=== PATIENT | female | born 1980 | race Caucasian/White ===

== ENCOUNTER 2023-11-25 04:26 | Day surgery (SDC) | payer OTHER ==
[2023-11-24 14:11] VITALS: BMI 33.5
[2023-11-25] MEDS ORDERED: BUPIVACAINE HCL/PF 0.5% (5MG/ML) 10 ML VIAL ONE (07:29)
[2023-11-25] MEDS ORDERED: PROPOFOL 20 ML ONE (07:34)
[2023-11-25] MEDS ORDERED: MIDAZOLAM HCL 2 MG/2 ML SINGLE DOSE VIAL ONE ×2 (07:34→11:13)
[2023-11-25] MEDS ORDERED: ROCURONIUM BROMIDE 50 MG/5 ML SYRINGE ONE ×3 (07:36→12:27)
[2023-11-25] MEDS ORDERED: ONDANSETRON 4 MG/2 ML VIAL IVPUSH PRN ×2 (08:25→14:40)
[2023-11-25] MEDS ORDERED: oxyCODONE HCL 5 MG TABLET PO PRN ×5 (08:25→14:40)
[2023-11-25] MEDS ORDERED: LACTATED RINGERS SOLUTION 1,000 ML IV SCH (08:30)
[2023-11-25] MEDS: ceFAZolin SODIUM 1 GM VIAL IVPB ONE ×2 (11:45)
[2023-11-25] MEDS ORDERED: PROPOFOL 40 ML ONE (12:30)
[2023-11-25] MEDS ORDERED: BISACODYL 5 MG TABLET.DR (FP) PO PRN (14:40)
[2023-11-25] MEDS: LACTATED RINGERS SOLUTION 1,000 ML IV SCH (15:50)
[2023-11-25] MEDS: ACETAMINOPHEN 500 MG TABLET (FP) PO SCH ×2 (16:29→21:54)
[2023-11-25] MEDS: ACETAMINOPHEN 325 MG TABLET (FP) PO SCH (16:30)
[2023-11-25] MEDS: SIMETHICONE 80 MG TAB.CHEW (FP) PO PRN (18:01)
[2023-11-25] MEDS: DOCUSATE SODIUM 100 MG CAPSULE (FP) PO PRN (18:01)
[2023-11-25] MEDS: CEFAZOLIN 1 GM in DEXTROSE 5%-WATER - 50 ML IVPB SCH (18:02)
[2023-11-25] MEDS ORDERED: KETOROLAC TROMETHAMINE 30 MG/1 ML VIAL IVPUSH PRN (20:00)
[2023-11-25 20:42] LABS: HEMATOCRIT 32.2 % (32.4-45.2); HEMOGLOBIN 10.3 GM/dL (10.7-15.3); MCH 27.8 pg (25.7-33.7); MCHC 31.9 g/dl (32.0-36.0); MEAN CELL VOLUME 87.1 fl (80-96); MEAN PLT VOLUME 7.4 fl (7.5-11.1); PLATELET COUNT 316 10^3/uL (134-434); RDW 14.8 % (11.6-15.6); WHITE BLOOD COUNT 12.4 K/mm3 (4.0-10.0)
[2023-11-26 11:08] LABS: HEMATOCRIT 30.5 % (32.4-45.2); HEMOGLOBIN 9.7 GM/dL (10.7-15.3); MCH 27.8 pg (25.7-33.7); MCHC 31.8 g/dl (32.0-36.0); MEAN CELL VOLUME 87.3 fl (80-96); MEAN PLT VOLUME 7.2 fl (7.5-11.1); PLATELET COUNT 379 10^3/uL (134-434); RBC 3.49 M/mm3 (3.60-5.2); RDW 14.8 % (11.6-15.6); WHITE BLOOD COUNT 12.4 K/mm3 (4.0-10.0)
[2023-11-26 11:22] VITALS: BP 122/72; PULSE 82; RESP 20; TEMP 98.2
== END 2023-11-26 11:45 | disposition home or self-care (01) ==
LOC: JASUSAT 04:26 → JASU-SURG 04:26 → J8W 16:10 → JASUSAT 11-26 11:45
PROVIDERS: ATTEND Specialist
PROC: 0UT9FZZ Resection of Uterus, Via Natural or Artificial Opening With Percutaneous Endoscopic Assistance (ICD-10-PCS; principal; 2023-11-25 08:00)
PROC: 8E0W4CZ Robotic Assisted Procedure of Trunk Region, Percutaneous Endoscopic Approach (ICD-10-PCS; 2023-11-25 08:00)
DX: D25.9 Leiomyoma of uterus, unspecified (principal); N80.03 Adenomyosis of the uterus
CPT/HCPCS: 58554; S2900; 36415; 81025; 82962; 85027; 86850; 86900; 86901; 88307-TC; 94760; J0131